=== PATIENT | female | born 1965 | race Caucasian/White ===

== ENCOUNTER 2017-06-26 10:30 | Emergency (ER) | payer OTHER ==
[~2017-06-26] VITALS: Ht 160 cm; Wt 81.0 kg
[~2017-06-26 10:30] MED LIST: EPIP0.3I IM; PROG1CAP20 TOP; VENTAER INH
[2017-06-26 10:31] VITALS: BP 208/83; PULSE 73; RESP 16; TEMP 98.2; O2SAT 100
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
[2017-06-26 12:24] VITALS: BP 143/91
== END 2017-06-26 12:27 | disposition home or self-care (01) ==
LOC: PHEFT 10:30
DX: S16.1XXA Strain of muscle, fascia and tendon at neck level, initial encounter (principal); M54.5 Low back pain; V43.92XA Unspecified car occupant injured in collision with other type car in traffic accident, initial encounter; Y92.410 Unspecified street and highway as the place of occurrence of the external cause
CPT/HCPCS: 72040; 72100; 99283